=== PATIENT | female | born 1940 | race Caucasian/White ===

== ENCOUNTER 2018-08-30 13:16 | Inpatient (IN) | payer MEDICARE, OTHER ==
[~2018-08-30] VITALS: Ht 152.4 cm; Wt 48.2 kg
--- NOTE | ~2018-08-30 | EC ---
PATIENT:MISHA SERVIN DATE OF SERVICE: 08/30/18 SEX: F MEDICAL RECORD: [id number] DATE OF : 38 LOCATION:D.M2 D.210 AGE OF PATIENT: 78 ADMISSION DATE: 08/30/18 REFERRING PHYSICIAN: INTERPRETING PHYSICIAN: KENNEDY MOHAN MD ECHOCARDIOGRAM REPORT ECHO CHARGES 4 ECHO COMPLETE Date: 08/31/18 CLINICAL DIAGNOSIS: CHF ECHOCARDIOGRAPHIC MEASUREMENTS (adult normal given) AC root (d.<3.7cm) 2.9 cm LV Septum d (<1.2 cm> 1.1 cm Valve Excursion 1.5 cm LV Septum (systole) 1.2 cm Left Atria (s.<4.0cm> 2.6 cm LVPW d(<1.2cm) 1.3 cm RV (d.<2.3cm) 2.8 cm LVPW (sytole) 1.6 cm LV diastole(<5.6CM) 4.7 cm MV E-F(>70mm/sec) cm LV systole 3.5 cm LVOT Diameter cm MV exc.(>10mm) 1.1 cm Est.ejection fraction (50-75%) % DOPPLER: LVIT cm/sec A 119 cm/sec E 90.0 cm/sec LA cm/sec RVSP 25 mmHg LVOT 122 cm/sec AOP1/2T m/s Asc. Ao 167 cm/sec RVOT cm/sec RA cm/sec PA cm/sec AV Gradient Peak 11.18mmHg AV Mean 6.33 mmHg AV Area 1.5 cm MV Gradient Peak 5.28 mmHg MV Mean 2.58 mmHg MV Area cm COMMENTS: Patent Searcher: Maribell MAGAÑA Fuel System Maintenance Worker: 1 Dr. Mohan TAPE# PACS Pericardial Effusion N DATE OF SERVICE: 08/31/2018 ECHOCARDIOGRAM FINDINGS: 1. Left ventricular chamber size is within normal limits. Left ventricular systolic function is normal. Overall ejection fraction estimated at 60%. 2. Left atrium, right atrium, and right ventricle chamber sizes are within normal limits. 3. Valvular structures have normal structure and motion. ECHOCARDIOGRAM REPORT [id number] MISHA SERVIN 4. Doppler interrogation reveals trace tricuspid regurgitation, no other valvular insufficiency or stenosis. 5. No evidence of pericardial effusion or left ventricular thrombus. TRANSINT:[id number] Voice Confirmation ID: [id number] DOCUMENT ID: [id number] KENNEDY MOHAN MD CC: [id number] DICTATION DATE: 08/31/18 1548 ALIGNMENT SPECIALIST: 08/31/[address] [facility] [address] [id number]
--- NOTE | 2018-08-30 08:35 | NUR ---
PT TO FLOOR VIA BED ACCOMPANIED BY HOSPITAL STAFF AND SPOUSE AT 2029. VSS. NO S/S OF DISTRESS. SEEMS MILDY ANXIOUS. FACE FLUSHED. IV IN L AC, LR GOING AT 125 ML/HR. NO C/O PAIN OR DISCOMFORT. ASSISTED PT TO BATHROOM AND BACK TO BED. PT REPORTS SLIGHT OVERALL WEAKNESS. SR UP X2, CL IN REACH. WCTOBSERVE
[2018-08-30] MEDS ORDERED: COZAAR25 MG PO (13:28)
--- NOTE | 2018-08-30 14:16 | NUR ---
PT NOW REPORTS THAT SHE HAS HAD SYNCOPAL EPISODES X 4 IN RECENT DAYS. ERP NOTIFIED.
[2018-08-30 14:27] LABS: ALBUMIN 3.8 g/dL (3.4-5.0); ALKALINE PHOSPHATASE 66 U/L (46-116); ALT (SGPT) 20 U/L (10-68); BILIRUBIN - TOTAL 1.84 mg/dL (0.2-1.3); CALC OSMOLALITY 264 mosm/kg (275-300); CARBON DIOXIDE 24.4 mmol/L (21.0-32.0); CHLORIDE - SERUM 96 mmol/L (98-107); CREATININE - SERUM 0.7 mg/dL (0.6-1.3); GLUCOSE 108 mg/dL (74-106); POTASSIUM - SERUM 3.8 mmol/L (3.5-5.1); PROTEIN - SERUM 7.4 g/dL (6.4-8.2); SODIUM 132 mmol/L (136-145); UREA NITROGEN 10 mg/dL (7-18); eGFR NON AFRICAN AMERICAN 85 mL/min (90-120)
[2018-08-30 14:29] LABS: APTT 27.2 SECONDS (22.8-39.4); INR 0.98 (0.85-1.17); PROTIME 12.5 SECONDS (11.6-15.0)
[2018-08-30 14:30] LABS: D-DIMER-QUANTITATIVE 0.31 ug/mLFEU (0.20-0.54)
[2018-08-30 14:34] LABS: BASOPHILS 0.3 % (0-2); EOSINOPHILS 0.6 % (0-7); HEMATOCRIT 39.7 % (36.0-48.0); HEMOGLOBIN 13.9 g/dL (12-16); IMMATURE GRANULOCYTES 0.3 % (0-5); LYMPHOCYTES 15.3 % (15-50); MCH 32.7 pg (26.0-34.0); MCV 93.4 fL (80.0-100.0); MEAN PLATELET VOLUME 10.9 fL (7.4-10.4); MONOCYTES 7.9 % (2-11); NEUTROPHILS 75.6 % (40-80); PLATELET COUNT 255 10x3/uL (130-400); RBC 4.25 10x6/uL (4.00-5.40); RDW 12.4 % (11.5-14.5); WBC 7.7 10x3/uL (4.8-10.8)
[2018-08-30 14:39] LABS: CKMB 0.5 U/L (0.0-3.6); CREATINE KINASE 47 UL (21-215); MAGNESIUM - SERUM 1.9 mg/dL (1.8-2.4)
[2018-08-30 14:40] LABS: TROPONIN-I < 0.017 ng/mL (0.000-0.060)
[2018-08-30 16:55] LABS: CKMB 0.4 U/L (0.0-3.6); CREATINE KINASE 45 UL (21-215)
[2018-08-30 16:57] LABS: TROPONIN-I < 0.017 ng/mL (0.000-0.060)
[2018-08-30 19:26] VITALS: BP 155/78
--- NOTE | 2018-08-30 19:31 | NUR ---
PT AMBULATES TO BATHROOM ET BEGINS COMPLAINING OF R SIDED CHEST "FUNNINESS". DENIES DIZZINESS, DENIES SOA. PT BP CHECKED UPON RETURN TO BED ET SYSTOLIC OVER 200. EKG OBTAINED HYDRALIZNE 10MG GIVEN SIVP. SYSTOLIC BP LOWERS TO 170'S. PT PULSE INCREASES TO 130'S. DR. TANMAY CONWAY. ORDERS RECEIVED FOR NORVASC 10MG ET ORTHOSTATIC BLOOD PRESSURES.
[2018-08-30 20:00] VITALS: BP 109/50
--- NOTE | 2018-08-30 20:00 | NUR ---
REPORT CALLED TO LAKHWINDER AT THIS TIME
--- NOTE | 2018-08-30 20:00 | NUR ---
ORTHOSTATIC BP CALLED TO DR DONATO AT THIS TIME. NO NEW ORDERS.
--- NOTE | 2018-08-30 20:01 | NUR ---
IV SITE WNL. IV FLUIDS INFUSING WELL. PT ALERT AND ORIETNED. DENIES ANY PAIN. NO DIZZINESS. WILL MONITOR
--- NOTE | 2018-08-30 20:02 | NUR ---
LYING HR 128 BP 132/59 SITTING HR 140 BP 139/64 STANDING HR 120 BP 145/115 MD ADVISED NO NEW ORDERS
--- NOTE | 2018-08-30 20:07 | NUR ---
IV FLUIDS STOPPED AT THIS TIME FOR TRANSFER
[2018-08-30 23:10] LABS: CKMB 0.8 U/L (0.0-3.6); CREATINE KINASE 41 UL (21-215); TROPONIN-I 0.029 ng/mL (0.000-0.060)
[2018-08-31] VITALS: BP 108/56
[2018-08-31 00:24] VITALS: BP 109/50; BMI 20.7
[2018-08-31 06:18] LABS: BASOPHILS 0.4 % (0-2); EOSINOPHILS 2.2 % (0-7); HEMATOCRIT 37.4 % (36.0-48.0); HEMOGLOBIN 12.9 g/dL (12-16); IMMATURE GRANULOCYTES 0.4 % (0-5); LYMPHOCYTES 25.7 % (15-50); MCH 32.9 pg (26.0-34.0); MCHC 34.5 g/dL (31.0-37.0); MONOCYTES 11.6 % (2-11); NEUTROPHILS 59.7 % (40-80); PLATELET COUNT 256 10x3/uL (130-400); RBC 3.92 10x6/uL (4.00-5.40); RDW 12.8 % (11.5-14.5)
[2018-08-31 06:32] LABS: ALBUMIN 3.2 g/dL (3.4-5.0); ALKALINE PHOSPHATASE 56 U/L (46-116); ALT (SGPT) 16 U/L (10-68); BILIRUBIN - TOTAL 1.78 mg/dL (0.2-1.3); CALC OSMOLALITY 270 mosm/kg (275-300); CALCIUM 8.6 mg/dL (8.5-10.1); CARBON DIOXIDE 26.4 mmol/L (21.0-32.0); CHLORIDE - SERUM 101 mmol/L (98-107); CKMB 0.7 U/L (0.0-3.6); CREATINE KINASE 44 UL (21-215); CREATININE - SERUM 0.7 mg/dL (0.6-1.3); GLUCOSE 101 mg/dL (74-106); PROTEIN - SERUM 6.7 g/dL (6.4-8.2); SODIUM 136 mmol/L (136-145); TROPONIN-I 0.034 ng/mL (0.000-0.060); UREA NITROGEN 9 mg/dL (7-18); eGFR NON AFRICAN AMERICAN 85 mL/min (90-120)
[2018-08-31 06:37] LABS: WBC 5.5 10x3/uL (4.8-10.8)
[2018-08-31 06:38] LABS: MCV 95.4 fL (80.0-100.0)
--- NOTE | 2018-08-31 07:20 | NUR ---
PT ASLEEP, SIDE LYING ON BED. IN BED WITH PT. BOTH WOKE I ENTERED. NO CONCERNS OR C/O AT THIS TIME. SRX2. CL IN REACH.
[2018-08-31 08:31] VITALS: BP 117/65
--- NOTE | 2018-08-31 09:28 | NUR ---
PT REPORTS FEELING "FUNNY". NO SPECIFICS. PT LOOKS FLUSHED TO THE FACE, B/P IS WNL. FAN TURNED OUT. WILL CONT. TO MONITOR.
[2018-08-31 12:45] VITALS: Ht 152.4 cm; Wt 48.2 kg
[2018-08-31 13:05] VITALS: BP 100/60
--- NOTE | 2018-08-31 16:01 | NUR ---
REFUSED SCDS. WALKS FREQUENTLY IN ROOM.
--- NOTE | 2018-08-31 20:50 | NUR ---
RESUMING CARE. PT IS ALERT LAYING IN BED. NO C/O VOICED AT THIS TIME. BED IN THE LOWEST POSITION WITH CALL LIGHT IN REACH. WILL CONTINUE TO MONITOR PT AND FOLLOW PLAN OF CARE.
[2018-08-31 21:08] VITALS: BP 108/61
--- NOTE | 2018-09-01 04:43 | NUR ---
RN NOTE - PT IN BED, RESTING WITH EYES CLOSE. NO NEEDS NOTED. NO S/S OF DISTRESS, RR EVEN AND UL. SPOUSE AT BEDSIDE. CL IN REACH, SR UP X2, BED IN LOWEST POSITION.
[2018-09-01 05:17] LABS: BASOPHILS 0.4 % (0-2); EOSINOPHILS 5.9 % (0-7); HEMATOCRIT 35.5 % (36.0-48.0); IMMATURE GRANULOCYTES 0.2 % (0-5); LYMPHOCYTES 31.2 % (15-50); MCH 32.7 pg (26.0-34.0); MCHC 33.8 g/dL (31.0-37.0); MCV 96.7 fL (80.0-100.0); MEAN PLATELET VOLUME 10.4 fL (7.4-10.4); NEUTROPHILS 49.3 % (40-80); PLATELET COUNT 232 10x3/uL (130-400); RBC 3.67 10x6/uL (4.00-5.40); RDW 12.6 % (11.5-14.5); WBC 5.4 10x3/uL (4.8-10.8)
[2018-09-01 05:47] LABS: CALC OSMOLALITY 273 mosm/kg (275-300); CALCIUM 8.4 mg/dL (8.5-10.1); CARBON DIOXIDE 24.3 mmol/L (21.0-32.0); CHLORIDE - SERUM 103 mmol/L (98-107); CHOL - HDL RATIO 1.9 ratio (2.3-4.1); CHOLESTEROL, TOTAL 151 mg/dL (0-200); CREATININE - SERUM 0.6 mg/dL (0.6-1.3); GLUCOSE 109 mg/dL (74-106); HDL CHOLESTEROL 81 mg/dL (32-96); LDL CHOLESTEROL 65 mg/dL (0-100); LDL-HDL RATIO 0.8 ratio (1.5-3.5); POTASSIUM - SERUM 3.8 mmol/L (3.5-5.1); SODIUM 137 mmol/L (136-145); TRIGLYCERIDE 26 mg/dL (30-200); UREA NITROGEN 11 mg/dL (7-18); eGFR NON AFRICAN AMERICAN > 90 mL/min (90-120)
--- NOTE | 2018-09-01 07:15 | NUR ---
RECEIVED REPORT. ASSUMED CARE OF PATIENT. PATIENT SITTING UP IN BED. STATES SHE MAY GO HOME TODAY. RESP EVEN AND UNLABORED. NO DISTRESS. CALL LIGHT WITHINR EACH.
--- NOTE | 2018-09-01 07:50 | NUR ---
PATIENT OOB TO SINK, WASHING FACE. WAITING FOR AM MEAL.
[2018-09-01 09:01] VITALS: BP 144/75
[2018-09-01 14:03] VITALS: BP 139/79
--- NOTE | 2018-09-01 14:25 | MORECARE ---
CASE MANAGEMENT DISCHARGE SUMMARY PATIENT: MISHA SERVIN UNIT: [id number] ADM DATE: 08/30/18 AGE: 78 : 39 SEX: F ROOM/BED: D.2101 AUTHOR: PALMER,DOC PHYSICIAN: REFERRING PHYSICIAN: JOSE DONATO MD DATE OF SERVICE: 09/01/18 Discharge Plan Patient Name: MISHA SERVIN Facility: [facility]:[place] : 1940 Planned Disposition: Home Anticipated Discharge Date: 09/01/18 Discharge Date: Expected LOS: 2 Initial Reviewer: [email or web address] Initial Review Date: 09/01/2018 Generated: 09/01/18 3:25 pm Comments DCP- Discharge Planning Updated by [email or web address]: Gita Correa on 09/01/18 1:[address] Patient Name: MISHA SERVIN Admission Status: ER Accout number: [id number] Admission Date: 08-30-2018 : 1940 Admission Diagnosis:SYNCOPE AND COLLAPSE Attending: JOSE DONATO Current LOS: 2 Anticipated DC Date: 09-01-2018 Planned Disposition: Home Primary Insurance: MEDICARE A & B Discharge Planning Comments: CM spoke to patient to complete initial dc planning assessment. CM educated Misha on the CM role and verbal consent given by patient to complete assessment. Patient states has no needs and plans to dc to home with her today. States she is independent with ADLs. States home environment is safe. cm will follow and assist as needed with dc planning/needs. Gizzard Peeler: Gita Correa DCPIA - Discharge Planning Initial Assessment Updated by [email or web address]: Gita Correa on 09/01/18 2:20 pm * Is the patient Alert and Oriented? Yes * PCP TANMAY * [facility] * Preadmission Environment Home with Family * ADLs Independent * List name and contact numbers for known caregivers / representatives who currently or will assist patient after discharge: JACK WONG, * Additional services required to return to the preadmission environment? No * Can the patient safely return to the preadmission environment? Yes * Has this patient been hospitalized within the prior 30 days at any hospital? No Patient Name: MISHA SERVIN Page [id number] at 1425 All edits/amendments must be made on the electronic document DICTATION DATE: 09/01/181424 WHOLESALE REPRESENTATIVE: JESUS ALBERTO 09/01/181424 RPT#: [id number] DC DATE: STATUS: ADM IN [facility] [address] [place] [address] END OF REPORT
--- NOTE | 2018-09-01 17:20 | NUR ---
1600 TELEMETRY REMOVED. 1605 DISCHARGE INSTRUCTIONS PROVIDED TO PATIENT AND HER . AT BEDSIDE DURING DISCHARGE INSTRUCTIONS AND WILL SEE PATIENT IN CLINIC ON MONDAY. PATIENT VERBALIZED UNDERSTANDING OF ALL INSTRUCTIONS PROVIDED. 1615 PATIENT LEFT UNIT VIA WHEELCHAIR WITH ALL PERSONAL BELONGINGS. PATIENT DISCHARGED TO HOME WITH HER . PATIENT LEFT UNIT IN NO DISTRESS.
--- NOTE | 2018-09-03 09:12 | MORECARE ---
CASE MANAGEMENT DISCHARGE SUMMARY PATIENT: MISHA SERVIN UNIT: [id number] ADM DATE: 08/30/18 AGE: 78 : 39 SEX: F ROOM/BED: D.2102 AUTHOR: PALMER,DOC PHYSICIAN: REFERRING PHYSICIAN: JOSE DONATO MD DATE OF SERVICE: 09/03/18 Discharge Plan Patient Name: MISHA SERVIN Facility: [facility]:[place] : 1940 Planned Disposition: Home Anticipated Discharge Date: 09/01/18 Discharge Date: 09/01/2018 Expected LOS: 2 Initial Reviewer: [email or web address] Initial Review Date: 09/01/2018 Generated: 09/03/18 10:12 am Comments DCP- Discharge Planning Updated by [email or web address]: Gita Correa on 09/01/18 1:[address] Patient Name: MISHA SERVIN Admission Status: ER Accout number: [id number] Admission Date: 08-30-2018 : 1940 Admission Diagnosis:SYNCOPE AND COLLAPSE Attending: JOSE DONATO Current LOS: 2 Anticipated DC Date: 09-01-2018 Planned Disposition: Home Primary Insurance: MEDICARE A & B Discharge Planning Comments: CM spoke to patient to complete initial dc planning assessment. CM educated Misha on the CM role and verbal consent given by patient to complete assessment. Patient states has no needs and plans to dc to home with her today. States she is independent with ADLs. States home environment is safe. cm will follow and assist as needed with dc planning/needs. Orthopedic Designer: Gita Correa DCPIA - Discharge Planning Initial Assessment Updated by [email or web address]: Gita Correa on 09/01/18 2:20 pm * Is the patient Alert and Oriented? Yes * PCP TANMAY * [facility] * Preadmission Environment Home with Family * ADLs Independent * List name and contact numbers for known caregivers / representatives who currently or will assist patient after discharge: JACK WONG, * Additional services required to return to the preadmission environment? No * Can the patient safely return to the preadmission environment? Yes * Has this patient been hospitalized within the prior 30 days at any hospital? No Last DP export: 09/01/18 1:25 pm Patient Name: MISHA SERVIN Page 13201 at 0912 All edits/amendments must be made on the electronic document DICTATION DATE: 09/03/18910 BELT LINE FEEDER: JESUS ALBERTO 09/03/18910 RPT#: [id number] DC DATE:09/01/18 STATUS: DIS IN [facility] [address] [place] [address] END OF REPORT
== END 2018-09-01 16:15 | disposition home or self-care (01) | DRG 312 ==
LOC: D.ER 13:16 → D.M2 16:02 → D.EDHOLD 16:02 → D.M2 17:26
PROVIDERS: Family Medicine; ADMIT Internal Medicine Nephrology
DX: R55 Syncope and collapse (principal); I10 Essential (primary) hypertension; R19.7 Diarrhea, unspecified